=== PATIENT | female | born 2000 | race Caucasian/White ===

== ENCOUNTER 2021-11-18 10:15 | Outpatient (RCR) | payer OTHER ==
[~2021-11-18 10:15] MED LIST: BACTRIM PED152.22 ML PO; LORTAB ELIX0.5 MG/ML; NO HOME MEDICATIONS; lortab elixer PO
== END 2021-12-13 | disposition home or self-care (01) ==
LOC: WSOH
DX: T23.26 Burn of second degree of back of hand (principal); Y99.0 Civilian activity done for income or pay

== ENCOUNTER 2022-02-07 14:34 | Outpatient (RCR) | payer OTHER | END 2022-02-12 | disposition home or self-care (01) | LOC: WSOH | DX: T23.26 Burn of second degree of back of hand (principal); Y99.0 Civilian activity done for income or pay ==